=== PATIENT | male | born 1965 | race Caucasian/White ===

== ENCOUNTER 2021-08-26 09:42 | Emergency (ER) | payer OTHER ==
[2021-08-26 09:49] VITALS: RESP 18
[2021-08-26] MEDS ORDERED: BAMLANIVIMAB (EUA) 700 MG, ETESEVIMAB (EUA) 1,400 MG in SODIUM CHLORIDE 0.9% 50 ML IVPB ONE (10:30)
--- NOTE | 2021-08-26 10:42 | ED ---
URI HPI - General Chief Complaint: Upper Respiratory Infection Stated Complaint: Covid+/Antibodies Time Seen by Provider: 08/26/21 09:44 Source: patient, RN notes reviewed Mode of arrival: ambulatory Limitations: no limitations - History of Present Illness Initial Comments: 56-year-old male presents emergency Department chief complaint of cold did . Patient states he tested positive on Friday. Patient states he's had mild cough congestion bodyaches fevers. Patient is here requesting monoclonal antibodies. Denies any GI symptoms mild sore throat mild headache. - Related Data Home Medications Medication Instructions Recorded Confirmed Atorvastatin [Lipitor] 10 mg PO HS 08/26/21 08/26/21 Cholecalciferol [Vitamin D3 (25 25 mcg PO DAILY 08/26/21 08/26/21 Mcg = 1000 Iu)] Lisinopril [Prinivil] 10 mg PO DAILY 08/26/21 08/26/21 Allergies Allergy/AdvReac Type Severity Reaction Status Date / Time doxycycline Allergy Rash/Hives Verified 08/26/21 10:15 Review of Systems ROS Statement: Those systems with pertinent positive or pertinent negative responses have been documented in the HPI. ROS Other: All systems not noted in ROS Statement are negative. Past Medical History Past Medical History: Hyperlipidemia, Hypertension History of Any Multi-Drug Resistant Organisms: None Reported Past Surgical History: Hernia Repair, Orthopedic Surgery Additional Past Surgical History / Comment(s): foot Past Psychological History: No Psychological Hx Reported Smoking Status: Current every day smoker Past Alcohol Use History: None Reported Past Drug Use History: Marijuana General Exam Limitations: no limitations General appearance: alert, in no apparent distress Head exam: Present: atraumatic, normocephalic, normal inspection Eye exam: Present: normal appearance, PERRL, EOMI. Absent: scleral icterus, conjunctival injection, periorbital swelling ENT exam: Present: normal exam, normal oropharynx, mucous membranes moist Neck exam: Present: normal inspection, full ROM. Absent: tenderness, meningismus, lymphadenopathy Respiratory exam: Present: normal lung sounds bilaterally. Absent: respiratory distress, wheezes, rales, rhonchi, stridor Cardiovascular Exam: Present: regular rate, normal rhythm, normal heart sounds. Absent: systolic murmur, diastolic murmur, rubs, gallop, clicks Course Vital Signs 08/26/21 09:45 Temperature 98.5 F Pulse Rate 64 Respiratory 18 Rate Blood Pressure 134/82 O2 Sat by Pulse 98 Oximetry Medical Decision Making - Medical Decision Making Patient received monoclonal antibodies and will be discharged in stable condition return parameters were discussed. - Lab Data Lab Results 08/26/21 Range/Units 09:59 Coronavirus (PCR) Detected A (Not Detectd) Disposition Clinical Impression: COVID-19 Disposition: HOME SELF-CARE Condition: Stable Instructions (If sedation given, give patient instructions): Coronavirus Dis ease 2019 (COVID-19) Additional Instructions: Please return to the Emergency Department if symptoms worsen or any other concerns. Is patient prescribed a controlled substance at d/c from ED?: No Referrals: Nonstaff,Physician [Primary Care Provider] - 1-2 days Time of Disposition: 10:41
[2021-08-26] MEDS ORDERED: SODIUM CHLORIDE 0.9% 50 ML IVPB ONE (11:00)
[2021-08-26 11:54] VITALS: BP 133/88; PULSE 84; TEMP 98
== END 2021-08-26 11:48 | disposition home or self-care (01) ==
LOC: EC 09:42
DX: U07.1 COVID-19 (principal); E78.5 Hyperlipidemia, unspecified; I10 Essential (primary) hypertension; F17.200 Nicotine dependence, unspecified, uncomplicated; F12.90 Cannabis use, unspecified, uncomplicated
CPT/HCPCS: 99283; M0245; 87635